=== PATIENT | female | born 2000 | race Caucasian/White ===

== ENCOUNTER 2022-03-23 22:13 | Emergency (ER) | payer OTHER ==
[2022-03-23] MEDS ORDERED: predniSONE 20 MG TAB ONE (23:14)
== END 2022-03-23 23:35 | disposition home or self-care (01) ==
LOC: BURERS 22:13
DX: J45.909 Unspecified asthma, uncomplicated (principal); Z20.822 Contact with and (suspected) exposure to COVID-19; Z79.51 Long term (current) use of inhaled steroids
CPT/HCPCS: 94640; 94760; J7512; J7620; U0003; U0005